=== PATIENT | female | born 1995 | race Caucasian/White ===

== ENCOUNTER 2022-02-13 10:03 | Emergency (ER) | payer OTHER ==
[2022-02-13 10:12] VITALS: BP 112/74; PULSE 95; RESP 20; TEMP 98; BMI 39.1
[2022-02-13] MEDS ORDERED: ACETAMINOPHEN 325 MG TABLET (FP) PO ONE (11:31)
[2022-02-13] MEDS ORDERED: ACETAMINOPHEN 325 MG TABLET (FP) ONE (11:36)
== END 2022-02-13 12:00 | disposition home or self-care (01) ==
LOC: JER 10:03
DX: R07.82 Intercostal pain (principal)
CPT/HCPCS: 99285-25

== ENCOUNTER 2022-04-04 21:45 | Inpatient (IN) | payer OTHER ==
[2022-04-04] MEDS ORDERED: PROMETHAZINE HCL 25 MG/1 ML VIAL IVPUSH ONE (23:17)
[2022-04-04] MEDS ORDERED: BUTORPHANOL TARTRATE 1 MG/ML VIAL IVPB ONE (23:17)
[2022-04-04] MEDS ORDERED: AMPICILLIN - 2 GM in SODIUM CHLORIDE 100 ML IVPB ONE (23:18)
[2022-04-05] MEDS ORDERED: AMPICILLIN SODIUM 2 GM VIAL ONE (00:39)
[2022-04-05] MEDS ORDERED: SODIUM CHLORIDE 100 ML IVPB ONE (00:41)
[2022-04-05 00:53] LABS: BASO % 0.6 % (0-2.0); EOS % 1.8 % (0-4.5); HEMATOCRIT 32.7 % (32.4-45.2); HEMOGLOBIN 10.6 GM/dL (10.7-15.3); LYMPH % 21.8 % (8-40); MCH 23.5 pg (25.7-33.7); MCHC 32.4 g/dl (32.0-36.0); MEAN CELL VOLUME 72.5 fl (80-96); MONO % 8.1 % (3.8-10.2); NEUT % 67.7 % (42.8-82.8); PLATELET COUNT 183 10^3/uL (134-434); RBC 4.51 M/mm3 (3.60-5.2); RDW 14.3 % (11.6-15.6); WHITE BLOOD COUNT 12.7 K/mm3 (4.0-10.0)
[2022-04-05 01:06] LABS: ACTIVATED PTT 27.8 SECONDS (25.2-36.5); PROTHROMBIN TIME (PATIENT) 11.5 SEC (9.7-13.0)
[2022-04-05 01:20] LABS: CALCIUM 8.4 mg/dL (8.5-10.1)
[2022-04-05 01:21] LABS: BLOOD UREA NITROGEN 6.1 mg/dL (7-18)
[2022-04-05 01:24] LABS: CREATININE 0.5 mg/dL (0.55-1.3)
[2022-04-05] MEDS: DEXTROSE 5%-LACTATED RINGERS 1,000 ML IV SCH ×2 (01:26→23:45)
[2022-04-05] MEDS: AMPICILLIN - 1 GM in SODIUM CHLORIDE 100 ML IVPB SCH ×6 (04:30→23:00)
[2022-04-05] MEDS ORDERED: AMPICILLIN SODIUM 1 GM VIAL ONE ×5 (04:58→22:38)
[2022-04-05 06:02] VITALS: BMI 39.1
[2022-04-05] MEDS ORDERED: OXYTOCIN 30 UNITS in 0.9% NS 30 UNIT/500 ML INFUS.BAG IVPB SCH (12:00)
[2022-04-05] MEDS ORDERED: OXYTOCIN 30 UNITS in 0.9% NS 30 UNIT/500 ML INFUS.BAG IVPB ONE (12:17)
[2022-04-05] MEDS ORDERED: FENTANYL/BUPIVACAINE/NS/PF - PCEA - 50 ML DISP.SYRIN EP ONE (22:32)
[2022-04-05] MEDS ORDERED: NALOXONE HCL 0.4 MG/ML VIAL IVPUSH PRN (22:44)
[2022-04-05] MEDS: FENTANYL/BUPIVACAINE/NS/PF - PCEA - 50 ML DISP.SYRIN EP SCH (22:45)
[2022-04-05] MEDS ORDERED: BUPIVACAINE HCL/PF 0.25% (2.5MG/ML) 10 ML VIAL ONE (22:47)
[2022-04-06] MEDS: AMPICILLIN - 1 GM in SODIUM CHLORIDE 100 ML IVPB SCH ×2 (03:00→06:30)
[2022-04-06] MEDS ORDERED: LIDOCAINE HCL 1% PRESERVATIVE FREE - 30ML VIAL ONE (03:03)
[2022-04-06] MEDS ORDERED: OXYTOCIN 20 UNITS in 0.9% NS 20 UNIT/1,000 ML INFUS.BAG IV ONE (03:03)
[2022-04-06] MEDS ORDERED: BUPIVACAINE HCL/PF 0.25% (2.5MG/ML) 10 ML VIAL ONE (03:22)
[2022-04-06] MEDS ORDERED: LIDO 2%/EPI 1:200000 PRESRVFRE (20 ML SDVIAL) ONE (03:22)
[2022-04-06] MEDS ORDERED: AMPICILLIN SODIUM 1 GM VIAL ONE ×2 (03:24→06:33)
[2022-04-06] MEDS ORDERED: FENTANYL/BUPIVACAINE/NS/PF - PCEA - 50 ML DISP.SYRIN EP ONE ×2 (03:29→06:32)
[2022-04-06] MEDS: FENTANYL/BUPIVACAINE/NS/PF - PCEA - 50 ML DISP.SYRIN EP SCH ×2 (03:45→06:45)
[2022-04-06] MEDS ORDERED: ACETAMINOPHEN 325 MG TABLET (FP) PO PRN (08:48)
[2022-04-06] MEDS ORDERED: BISACODYL 10 MG SUPP.RECT RC PRN (08:48)
[2022-04-06] MEDS ORDERED: IBUPROFEN 600 MG TABLET (FP) PO PRN (08:48)
[2022-04-06] MEDS ORDERED: BENZOCAINE 20% 57 GM BOTTLE TP PRN (08:48)
[2022-04-06] MEDS ORDERED: WITCH HAZEL 50% (TUCKS) 40 PAD/JAR PAD TP PRN (08:48)
[2022-04-06] MEDS ORDERED: BENZOCAINE 28 GM HEMORRHOIDAL OINTMENT TP PRN (08:48)
[2022-04-06] MEDS ORDERED: METHYLERGONOVINE MALEATE 0.2 MG/1 ML AMP IM PRN (08:48)
[2022-04-06] MEDS ORDERED: oxyCODONE HCL 5 MG TABLET PO PRN (08:48)
[2022-04-06] MEDS ORDERED: OXYTOCIN 20 UNITS in 0.9% NS 20 UNIT/1,000 ML INFUS.BAG IV SCH (09:00)
[2022-04-07 08:22] LABS: BASO % 0.3 % (0-2.0); EOS % 1.5 % (0-4.5); HEMATOCRIT 24.8 % (32.4-45.2); HEMOGLOBIN 8.2 GM/dL (10.7-15.3); LYMPH % 16.9 % (8-40); MCH 23.9 pg (25.7-33.7); MCHC 33.1 g/dl (32.0-36.0); MEAN CELL VOLUME 72.2 fl (80-96); MEAN PLT VOLUME 9.8 fl (7.5-11.1); MONO % 7.1 % (3.8-10.2); NEUT % 74.2 % (42.8-82.8); PLATELET COUNT 147 10^3/uL (134-434); RBC 3.43 M/mm3 (3.60-5.2); RDW 14.3 % (11.6-15.6); WHITE BLOOD COUNT 15.1 K/mm3 (4.0-10.0)
[2022-04-07] MEDS ORDERED: SENNOSIDES/DOCUSATE COMBO (SENNA PLUS) TABLET (UD) PO PRN (22:00)
[2022-04-07 23:41] VITALS: RESP 17
[2022-04-08 08:14] VITALS: BP 107/58; PULSE 75; TEMP 98
== END 2022-04-08 16:42 | disposition home or self-care (01) | DRG 560 ==
LOC: JLDR 21:45 → J3W 04-06 10:45
PROVIDERS: ADMIT Specialist; ATTEND Specialist
PROC: 10E0XZZ Delivery of Products of Conception, External Approach (ICD-10-PCS; principal; 2022-04-06)
PROC: 0W8NXZZ Division of Female Perineum, External Approach (ICD-10-PCS; 2022-04-06)
DX: O99.824 Streptococcus B carrier state complicating childbirth (principal); Z3A.39 39 weeks gestation of pregnancy; Z37.0 Single live birth
CPT/HCPCS: 36415; 59409; 80048; 85025; 85610; 85730; 86780; 86850; 86900; 86901; C9803-CS; U0003; U0005